=== PATIENT | male | born 1950 | race African-American/Black ===

== ENCOUNTER 2017-12-20 19:44 | Emergency (ER) | payer OTHER ==
[~2017-12-20] VITALS: Ht 180.3 cm; Wt 87.0 kg
[2017-12-20] MEDS ORDERED: LORAZEPAM 0.5MG TABLET PO ONE (20:00)
[2017-12-20 21:45] VITALS: BP 107/77
== END 2017-12-20 21:47 | disposition home or self-care (01) ==
LOC: ER 20:41
DX: F41.9 Anxiety disorder, unspecified (principal); R06.03 Acute respiratory distress; E11.9 Type 2 diabetes mellitus without complications; I10 Essential (primary) hypertension
CPT/HCPCS: 71045; 93005; 99284